=== PATIENT | female | born 1940 | race Caucasian/White ===

== ENCOUNTER 2018-10-20 12:45 | Inpatient (IN) | payer MEDICARE, OTHER ==
--- NOTE | 2018-10-20 13:57 | PDOC ---
History of Present Illness - General Chief Complaint: Headache Stated Complaint: HEADACHES Time Seen by Provider: 10/20/18 13:05 History Source: Patient Exam Limitations: No Limitations - History of Present Illness Initial Comments: 10/20/18 13:51 HISTORY OF PRESENT ILLNESS: This is a 78-year-old woman past medical history of hypertension, [id number] diabetes, hyperlipidemia, osteoarthritis presents emergency department for evaluation of 5 days of dizziness, weakness, shortness of breath, uneasy feeling in her chest and upper abdomen and decreased exercise tolerance. Patient is unable to describe the feeling she has in her chest but describes abdomen as a bloating sensation. Patient was seen today by her primary doctor who referred patient to the emergency department for evaluation. She denies fevers, chills, headache, nausea, vomiting, dysuria, hematuria, rectal bleeding, constipation, diarrhea. No recent travel or sick contacts. PAST MEDICAL HISTORY: see HPI SURGICAL HISTORY: Denies ALLERGIES: No known drug allergies REVIEW OF SYSTEMS General/Constitutional: Denies fever or chills. Denies weakness, weight change. HEENT: Denies change in vision. Denies ear pain or discharge. Denies sore throat. Cardiovascular: see HPI Respiratory: Denies cough, wheezing, or hemoptysis. Gastrointestinal: Denies nausea, vomiting, diarrhea or constipation. Denies rectal bleeding. Genitourinary: Denies dysuria, frequency, or change in urination. Musculoskeletal: Denies joint or muscle swelling or pain. Denies neck or back pain. Skin and breasts: Denies rash or easy bruising. Neurologic: see HPI Psychiatric: Denies depression or anxiety. Endocrine: Denies increased thirst. Denies abnormal weight change. Hematologic/Lymphatic: Denies anemia, easy bleeding, or history of blood clots. Allergic/Immunologic: Denies hives or skin allergy. Denies latex allergy. PHYSICAL EXAM General Appearance: Well-appearing, appropriately dressed. No apparent distress , no intoxication. HEENT: EOMI, PERRLA, normal ENT inspection, normal voice, TMs normal, pharynx normal. No conjunctival pallor. No photophobia, scleral icterus. Neck: Supple. Trachea midline. No tenderness, rigidity, carotid bruit, stridor , lymphadenopathy, or thyromegaly. Respiratory/Chest: Lungs CTAB. No shortness of breath, chest tenderness, respiratory distress, accessory muscle use. No crackles, rales, rhonchi, stridor , wheezing, dullness Cardiovascular: RRR. S1, S2. No JVD, murmur, bradycardia, tachycardia. No edema present. Vascular Pulses: Dorsalis-Pedis (R): 2+, Dorsalis-Pedis (L): 2+ Gastrointestinal/Abdominal: Normal bowel sounds. Abdomen soft, non-distended. No tenderness or rebound tenderness. No organomegaly, pulsatile mass, guarding, hernia, hepatomegaly, splenomegaly. Lymphatic: No adenopathy, tenderness. Musculoskeletal/Extremities: Normal inspection. FROM of all extremities, normal capillary refill. Pelvis Stable. No CVA tenderness. No tenderness to extremities, pedal edema, swelling, erythema or deformity. Integumentary: Appropriate color, dry, warm. No cyanosis, erythema, jaundice or rash Neurologic: beam saw operator II-XII intact. Fully oriented, alert. Appropriate mood/affect. Motor strength 5/5. No appreciable EOM palsy, facial droop or sensory deficit. Past History - Past Medical History Allergies/Adverse Reactions: Allergies Allergy/AdvReac Type Severity Reaction Status Date / Time No Known Allergies Allergy Verified 10/20/18 13:01 COPD: No - Suicide/Smoking/Psychosocial Hx Smoking History: Never smoked Have you smoked in the past 12 months: No Information on smoking cessation initiated: No Hx Alcohol Use: No Drug/Substance Use Hx: No *Physical Exam - Vital Signs Last Vital Signs Temp Pulse Resp BP Pulse Ox 98.7 F 70 16 151/88 100 10/20/18 13:00 10/20/18 13:00 10/20/18 13:00 10/20/18 13:00 10/20/18 13:00 Heart Score/ECG Review - History History: Slightly suspicious - Electrocardiogram EKG: Normal - Age Age: >/= 65 - Risk Factors Risk Factors Heart Score: Yes Hx Hypercholesterolemia, Yes Hx Hypertension, Yes Hx Diabetes Based on the list above the patient has:: >/=3 risk factors or Hx atherosclerotic disease - Troponin Troponin: </= normal limit - Score Heart Score - Total: 4 ED Treatment Course - LABORATORY CBC & Chemistry Diagram: 10/20/18 13:21 10/20/18 13:21 Medical Decision Making - Medical Decision Making 10/20/18 13:57 A/P: 78-year-old woman with lightheadedness, shortness of breath, abdominal bloating and decreased exercise tolerance for 5 days Differential diagnosis includes but is not limited to-pneumonia, CHF, ACS, WI, PE, viral illness, hyperglycemia, occult infection. Less likely infectious as patient is afebrile. PE would be low likelihood given patient is oxygenating well with a normal heart rate and respiratory rate. Cardiac workup 10/20/18 14:41 EKG sinus rhythm with rate of 72. Occasional PVCs present. Normal intervals noted. No ischemic changes noted. Chest x-ray as read by me: Angles sharp. Lung love clear without infiltrates or consolidations noted. Cardiac silhouette is within normal limits. Laboratory testing notable for WBC 15.3 without shift. Initial troponin less than 0.02. Beta natruretic peptide 103.4. Given heart score of 4, I'll admit patient to hospitalist service to contact cardiology for consult. 10/20/18 15:46 10/20/18 16:24 Case has been discussed with Dr. Rothman who accepts patient for telemetry admission. Dr. Finn placed for cardiology consult. *DC/Admit/Observation/Transfer Diagnosis at time of Disposition: Shortness of breath - Discharge Dispostion Condition at time of disposition: Fair Decision to Admit order: Yes - Referrals Referrals: Zhen Thakkar MD [Primary Care Provider] - - Patient Instructions - Post Discharge Activity
[2018-10-20 14:02] LABS: BASO % 0.5 % (0-2.0); EOS % 2.7 % (0-4.5); HEMATOCRIT 36.5 % (32.4-45.2); HEMOGLOBIN 11.9 GM/dL (10.7-15.3); LYMPH % 34.7 % (8-40); MCH 27.3 pg (25.7-33.7); MCHC 32.6 g/dl (32.0-36.0); MEAN CELL VOLUME 83.7 fl (80-96); MEAN PLT VOLUME 9.7 fl (7.5-11.1); MONO % 8.1 % (3.8-10.2); PLATELET COUNT 433 K/MM3 (134-434); RBC 4.36 M/mm3 (3.60-5.2); RDW 15.2 % (11.6-15.6); WHITE BLOOD COUNT 15.3 K/mm3 (4.0-10.0)
--- NOTE | 2018-10-20 14:03 | PDOC ---
*Physical Exam - Vital Signs Last Vital Signs Temp Pulse Resp BP Pulse Ox 98.7 F 70 16 151/88 100 10/20/18 13:00 10/20/18 13:00 10/20/18 13:00 10/20/18 13:00 10/20/18 13:00 ED Treatment Course - LABORATORY CBC & Chemistry Diagram: 10/21/18 05:45 10/21/18 05:45 Medical Decision Making - Medical Decision Making 10/20/18 16:49 Ms Cartwright is a 78-year-old F h/o HTN, NIDDM, HLD, Osteoarthritis who presents to the ER with a complaint of dizziness, weakness, shortness of breath, uneasy feeling in her chest and upper abdomen and decreased exercise tolerance. She denies fevers, chills, headache, nausea, vomiting, dysuria, hematuria, rectal bleeding, constipation, diarrhea. Given pt age and medical history, would be cautious and place her on observation Agree with history, physical and plan per [facility] EKG - NSR rate of 72 bpm, axis nml, intervals nml, no st elevation or depression t waves upright 10/20/18 16:53 Laboratory Tests 10/20/18 10/20/18 10/20/18 13:21 13:21 13:21 WBC 15.3 H Hgb 11.9 Hct 36.5 Plt Count 433 INR 0.92 Troponin I < 0.02 10/20/18 16:53 CXR - emphasematous changes No infiltrate Agree with plan per CARDIOVASCULAR TECH Sukumar *DC/Admit/Observation/Transfer Diagnosis at time of Disposition: Shortness of breath - Discharge Dispostion Condition at time of disposition: Fair - Referrals - Patient Instructions - Post Discharge Activity
[2018-10-20 14:19] LABS: INR 0.92 (0.83-1.09); PROTHROMBIN TIME (PATIENT) 10.9 SEC (9.7-13.0)
[2018-10-20 14:22] LABS: ACTIVATED PTT 26.6 SECONDS (25.2-36.5)
[2018-10-20 14:28] LABS: ALBUMIN 3.5 g/dl (3.4-5.0); ALK PHOS 102 U/L (45-117); ANION GAP 6 MMOL/L (8-16); BILIRUBIN,TOTAL 0.4 mg/dL (0.2-1); BLOOD UREA NITROGEN 16.8 mg/dL (7-18); CALCIUM 9.5 mg/dL (8.5-10.1); CHLORIDE 102 mmol/L (98-107); CO2 31 mmol/L (21-32); CREATININE 0.8 mg/dL (0.55-1.3); GLUCOSE,RANDOM 110 mg/dL (74-106); SGOT/AST 25 U/L (15-37); SGPT/ALT 24 U/L (13-61); SODIUM 139 mmol/L (136-145); TOT PROT 7.2 g/dl (6.4-8.2)
[2018-10-20 14:31] LABS: POTASSIUM 4.1 mmol/L (3.5-5.1)
--- NOTE | 2018-10-20 16:28 | HP ---
Admitting History and Physical - Admission Chief Complaint: came in for shortness ofbreath History of Present Illness: : This is a 78-year-old woman past medical history of hypertension, non-insulin- dependent diabetes, hyperlipidemia, osteoarthritis presents emergency department for evaluation of 5 days of dizziness, weakness, shortness of breath , uneasy feeling in her chest and upper abdomen and decreased exercise tolerance. Patient is unable to describe the feeling she has in her chest but describes abdomen as a bloating sensation. Patient was seen today by her primary doctor who referred patient to the emergency department for evaluation. She denies fevers, chills, headache, nausea, vomiting, dysuria, hematuria, rectal bleeding, constipation, diarrhea. History Source: Family Member Limitations to Obtaining History: Language Barrier - Past Medical History Cardiovascular: Yes: HTN, Hyperlipdemia - Smoking History Smoking history: Never smoked Have you smoked in the past 12 months: No - Alcohol/Substance Use Hx Alcohol Use: No Home Medications - Allergies Allergies/Adverse Reactions: Allergies Allergy/AdvReac Type Severity Reaction Status Date / Time No Known Allergies Allergy Verified 10/20/18 13:01 Review of Systems - Review of Systems Cardiovascular: reports: Chest Pain, Shortness of Breath Physical Examination Vital Signs: Vital Signs Temperature 98.7 F 10/20/18 13:00 Pulse Rate 70 10/20/18 13:00 Respiratory Rate 16 10/20/18 13:00 Blood Pressure 151/88 10/20/18 13:00 O2 Sat by Pulse Oximetry (%) 100 10/20/18 13:00 Labs: CBC, BMP 10/20/18 13:21 10/20/18 13:21 Problem List - Problems (1) Shortness of breath Assessment/Plan: echo CE [address]ray show emphysematous changes cardiology pulm consult duonebs oxygen daily weights dvt ppx iv medrol Code(s): R06.02 - SHORTNESS OF BREATH (2) HTN (hypertension) Assessment/Plan: norvasc losasrtan Code(s): I10 - ESSENTIAL (PRIMARY) HYPERTENSION (3) HLD (hyperlipidemia) Assessment/Plan: lipid panel Code(s): E78.5 - HYPERLIPIDEMIA, UNSPECIFIED (4) Diabetes Assessment/Plan: hgba1c slidign scale bgm Code(s): E11.9 - TYPE 2 DIABETES MELLITUS WITHOUT COMPLICATIONS Qualifiers: Diabetes mellitus type: type 2 Diabetes mellitus complication detail: with dermatitis
[2018-10-20] MEDS ORDERED: AZITHROMYCIN IVPB 500 MG in DEXTROSE 5%-WATER - 250 ML IVPB ONE (16:47)
[2018-10-20] MEDS ORDERED: AZITHROMYCIN IVPB 500 MG/250 ML BAG IVPB ONE (17:15)
[2018-10-20] MEDS ORDERED: methylPREDNISolone NA SUCC 40 MG/1 ML VIAL ONE (17:15)
[2018-10-20] MEDS: methylPREDNISolone NA SUCC 40 MG/1 ML VIAL IVPB SCH (18:32)
[2018-10-20] MEDS: ALBUTEROL SO4 2.5/IPRATROPIUM 0.5 INH SOL 3 ML VIAL.NEB. NEB SCH (20:11)
[2018-10-20] MEDS ORDERED: ALBUTEROL SO4 2.5/IPRATROPIUM 0.5 INH SOL 3 ML VIAL.NEB. NEB ONE (20:13)
[2018-10-20] MEDS: INSULIN SLIDING SCALE (NOVOLOG) 1 VIAL SQ SCH (21:10)
[2018-10-20] MEDS: HEPARIN NA (PORCINE) 5,000 UNITS/ML 1ML VIAL SQ SCH (21:10)
[2018-10-20 21:39] VITALS: BMI 27.6
[2018-10-21] MEDS: methylPREDNISolone NA SUCC 40 MG/1 ML VIAL IVPB SCH ×3 (01:02→17:12)
[2018-10-21 01:56] LABS: PH,URINE 6.5 (5.0-8.0); URINE APPEARANCE Clear; URINE BILIRUBIN Negative (NEGATIVE); URINE COLOR Light yellow; URINE GLUCOSE (UA) Negative (NEGATIVE); URINE KETONE Negative (NEGATIVE); URINE LEUK ESTERASE 1+ (NEGATIVE); URINE NITRITE Negative (NEGATIVE); URINE PROTEIN Negative (NEGATIVE); URINE UROBILINOGEN 0.2 mg/dL (0.2-1.0)
[2018-10-21] MEDS: INSULIN SLIDING SCALE (NOVOLOG) 1 VIAL SQ SCH ×4 (06:05→22:00)
[2018-10-21 07:12] LABS: BASO % 0.3 % (0-2.0); EOS % 0.1 % (0-4.5); HEMATOCRIT 35.5 % (32.4-45.2); LYMPH % 15.1 % (8-40); MCH 27.9 pg (25.7-33.7); MCHC 33.7 g/dl (32.0-36.0); MEAN CELL VOLUME 82.6 fl (80-96); MEAN PLT VOLUME 9.8 fl (7.5-11.1); MONO % 0.8 % (3.8-10.2); NEUT % 83.7 % (42.8-82.8); PLATELET COUNT 409 K/MM3 (134-434); RDW 15.1 % (11.6-15.6); WHITE BLOOD COUNT 10.6 K/mm3 (4.0-10.0)
[2018-10-21 07:14] LABS: INR 0.97 (0.83-1.09); PROTHROMBIN TIME (PATIENT) 11.4 SEC (9.7-13.0)
[2018-10-21 07:17] LABS: ACTIVATED PTT 27.6 SECONDS (25.2-36.5)
[2018-10-21 07:30] LABS: ALBUMIN 3.3 g/dl (3.4-5.0); ALK PHOS 92 U/L (45-117); ANION GAP 14 MMOL/L (8-16); BILIRUBIN,TOTAL 0.4 mg/dL (0.2-1); BLOOD UREA NITROGEN 18.8 mg/dL (7-18); CALCIUM 9.3 mg/dL (8.5-10.1); CHLORIDE 101 mmol/L (98-107); CHOLESTEROL 242 mg/dL (50-200); CO2 27 mmol/L (21-32); GLUCOSE,RANDOM 224 mg/dL (74-106); HDL CHOLESTEROL 57 mg/dL (40-60); MAGNESIUM 2.6 mg/dL (1.8-2.4); N-TERMINAL BNP 133.1 pg/ml (5-450); PHOSPHOROUS 3.2 mg/dL (2.5-4.9); SGOT/AST 12 U/L (15-37); SGPT/ALT 20 U/L (13-61); SODIUM 141 mmol/L (136-145); TOT PROT 6.8 g/dl (6.4-8.2); TRIGLYCERIDES 195 mg/dL (0-150)
[2018-10-21] MEDS: ALBUTEROL SO4 2.5/IPRATROPIUM 0.5 INH SOL 3 ML VIAL.NEB. NEB SCH ×4 (08:15→19:43)
--- NOTE | 2018-10-21 09:06 | PN ---
Progress Note, Physician - Current Medication List Current Medications: Active Medications Albuterol/Ipratropium (Duoneb -) 1 amp NEB RQID [facility] Last Admin: 10/20/18 20:11 Dose: 1 amp Heparin Sodium (Porcine) (Heparin -) 5,000 unit SQ BID [facility] Last Admin: 10/20/18 21:10 Dose: 5,000 unit Insulin Aspart (Novolog Vial Sliding Scale -) 1 vial SQ ACHS [facility]1983; Protocol Last Admin: 10/21/18 06:05 Dose: 2 units Losartan Potassium (Cozaar -) 50 mg PO DAILY [facility] Methylprednisolone Sodium Succinate (Solu-Medrol -) 40 mg IVPB Q8H-IV [facility] Last Admin: 10/21/18 01:02 Dose: 40 mg - Objective Vital Signs: Vital Signs Temperature 98.3 F 10/21/18 06:00 Pulse Rate 72 10/21/18 06:00 Respiratory Rate 11 10/21/18 06:00 Blood Pressure 113/44 L 10/21/18 06:00 O2 Sat by Pulse Oximetry (%) 96 10/20/18 21:29 Cardiovascular: Yes: S1, S2 Respiratory: Yes: Diminished, On Nasal O2 Gastrointestinal: Yes: Normal Bowel Sounds, Soft Labs: CBC, BMP 10/21/18 05:45 10/21/18 05:45 INR, PTT INR 0.97 (0.83-1.09) 10/21/18 06:30 Problem List - Problems (1) COPD (chronic obstructive pulmonary disease) Assessment/Plan: - chest ct xray show emphysematous changes pulm consult duonebs oxygen daily weights dvt ppx iv medrol Code(s): J44.9 - CHRONIC OBSTRUCTIVE PULMONARY DISEASE, UNSPECIFIED (2) Diabetes Assessment/Plan: hgba1c slidign scale bgm Code(s): E11.9 - TYPE 2 DIABETES MELLITUS WITHOUT COMPLICATIONS Qualifiers: Diabetes mellitus type: type 2 Diabetes mellitus complication detail: with dermatitis (3) HLD (hyperlipidemia) Code(s): E78.5 - HYPERLIPIDEMIA, UNSPECIFIED (4) HTN (hypertension) Assessment/Plan: : norvasc losasrtan Code(s): I10 - ESSENTIAL (PRIMARY) HYPERTENSION (5) Shortness of breath Assessment/Plan: echo CE [address] xray show emphysematous changes cardiology Code(s): R06.02 - SHORTNESS OF BREATH
[2018-10-21] MEDS: LOSARTAN POTASSIUM 50 MG TABLET (FP) PO SCH (10:07)
[2018-10-21] MEDS: HEPARIN NA (PORCINE) 5,000 UNITS/ML 1ML VIAL SQ SCH ×2 (10:08→21:25)
--- NOTE | 2018-10-21 15:08 | CON.CARD ---
Consult Consult Specialty:: Cardiology Referred by:: Dr. Solano Reason for Consultation:: SOB - History of Present Illness Chief Complaint: SOB, abd discomfort History of Present Illness: 78 year old woman with a pmh HTN, DMII, HLD, asthma adm with c/o 2 week history of epigastric discomfort radiating up her substernum and to the L side of the chest and sob. pt seen and examined today with her family at bedside who assisted with translation. pt states that 2 week ago while eating she had onset of epigastric discomfort radiating up the center of her chest and to the left of the chest. after this episode she felt sob. since then she has had episodes of epigastric discomfort with eating as well as continued sob. states she was diagnosed with asthma 3 years ago when she had similar episodes of sob. had a stress test at that time at [facility] that was normal. she was treated for asthma and has followed with a roofing laborer and states her asthma has been well controlled. she denies ever smoking. denies dyspnea on exertion. denies other episodes of chest pain or chest pain on exertion. no pnd, orthopnea, or le edema. no palpitations. since admission she was started on treatment for asthma exacerbation with nebulizers and steroids and supp O2 and states that she is feeling much better. no current sob or chest pain. - History Source History Provided By: Patient, Family Member Limitations to Obtaining History: Language Barrier - Past Medical History Cardio/Vascular: Yes: HTN, Hyperlipdemia Pulmonary: Yes: Asthma Gastrointestinal: Yes: GERD - Alcohol/Substance Use Hx Alcohol Use: No - Smoking History Smoking history: Never smoked Have you smoked in the past 12 months: No - Social History Usual Living Arrangement: With Spouse ADL: Independent History of Recent Travel: No Home Medications - Allergies Allergies/Adverse Reactions: Allergies Allergy/AdvReac Type Severity Reaction Status Date / Time No Known Allergies Allergy Verified 10/20/18 13:01 Family Disease History - Family Disease History Family History: Denies Review of Systems - Review of Systems Constitutional: denies: No Symptoms, Chills, Diaphoresis, Fever, Lethargy, Loss of Appetite, Malaise, Night Sweats, Unintentional Wgt. Loss, Weakness, Other Eyes: denies: No Symptoms, Blind Spots, Blurred Vision, Double Vision, Eye Pain , Floaters, Photophobia, Recent Change in Vision, Other HENT: denies: No Symptoms, Difficult Swallowing, Ear Discharge, Ear Pain, Epistaxis, Gingival Bleeding, Hearing Loss, Mouth Swelling, Nasal Congestion, Ocular Prosthesis, Throat Pain, Toothache, Ringing in Ears, Other Neck: denies: No Symptoms, Decreased ROM, Lumps, Pain on Movement, Stiffness, Swollen Glands, Tenderness, Other Cardiovascular: reports: Chest Pain, Shortness of Breath. denies: No Symptoms, Edema, Palpitations, Other Respiratory: reports: SOB. denies: No Symptoms, Cough, Exercise Intolerance, Hemoptysis, Orthopnea, PND, Snoring, SOB on Exertion, Wheezing, Other Gastrointestinal: reports: Abdominal Pain. denies: No Symptoms, Bloating, Constipation, Diarrhea, Dysphagia, Indigestion, Melena, Nausea, Rectal Bleeding , Vomiting, Vomiting Blood, Other Genitourinary: denies: No Symptoms, Burning, Discharge, Dysuria, Flank Pain, Frequency, Hematuria, Incontinence, Lesions, Menses, Pain, Testicular Mass, Testicular Pain, Testicular Swelling, Urgency, Vaginal Bleeding, Other Breasts: denies: No Symptoms Reported, See HPI, Breast Implants, Discharge from Nipple, Lumps, Pain, Skin Changes, Other Musculoskeletal: denies: No Symptoms, Back Pain, Crepitus, Decreased ROM, Extremity Pain, Joint Pain, Joint Swelling, Muscle Pain, Muscle Cramps, Muscle Weakness, Other Integumentary: denies: No Symptoms, Blister, Bruising, Change in Color, Eczema, Erythema, Incision, Lesions, Lump, Pallor, Pruritis, Rash, Wound, Other Neurological: denies: No Symptoms, Change in LOC, Change in Speech, Confusion, Dizziness, Headache, Incoordination, Numbness, Parasthesia, Pre-Existing Deficit , Seizure, Syncope, Tremors, Unsteady Gait, Weakness, Other Endocrine: denies: No Symptoms, Excessive Sweating, Flushing, Increased Hunger, Increased Thirst, Intolerance to Cold, Intolerance to Heat, Unexplained Weight Gain, Unexplained Weight Loss, Other Hematology/Lymphatic: denies: No Symptoms, Easily Bruised, Excessive Bleeding, Swollen Glands, Other Psychiatric: denies: No Symptoms, Altered Sleep Pattern, Anxiety, Depression, Hallucinations, Panic, Paranoia, Suicidal, Other Vital Signs: Vital Signs Temperature 98.5 F 10/21/18 14:00 Pulse Rate 82 10/21/18 14:00 Respiratory Rate 14 10/21/18 14:00 Blood Pressure 133/53 L 10/21/18 14:00 O2 Sat by Pulse Oximetry (%) 95 10/21/18 08:46 Constitutional: Yes: No Distress, Calm Eyes: Yes: Conjunctiva Clear, EOM Intact, PERRL HENT: Yes: Atraumatic, Normocephalic Neck: Yes: Supple, Trachea Midline Respiratory: Yes: Regular, On Nasal O2, Rhonchi. No: Rales, SOB, Wheezes Gastrointestinal: Yes: Normal Bowel Sounds, Soft. No: Distention, Tenderness Cardiovascular: Yes: Regular Rate and Rhythm. No: Bradycardia, Tachycardia, Pulse Irregular, Gallop, Rub, Varicosities JVD: No Carotid Bruit: No PMI: Non-Displaced Heart Sounds: Yes: S1, S2. No: Split S2, S3, S4, Clicks, Gallop, Rub, Bruit Murmur: No: Systolic Murmur, Diastolic Murmur Musculoskeletal: Yes: WNL Extremities: Yes: WNL Edema: No Peripheral Pulses WNL: Yes Peripheral Pulses: 2+ Left Doralis Pedis, 2+ Right Dorsalis Pedis Neurological: Yes: Alert, Oriented Psychiatric: Yes: Alert, Oriented - Other Data Labs, Other Data: CBC, BMP 10/21/18 05:45 10/21/18 05:45 INR, PTT INR 0.97 (0.83-1.09) 10/21/18 06:30 Troponin, BNP 10/21/18 05:45 Troponin I < 0.02 B-Natriuretic Peptide 133.1 Troponin, BNP 10/21/18 05:45 Troponin I < 0.02 B-Natriuretic Peptide 133.1 nsr, no sig ST abnl, possible inferior infarct, age undetermined. Imaging - Results Chest X-ray: Report Reviewed Cat Scan: Report Reviewed Other: Report Reviewed, Image Reviewed (tele-nsr, no sig arrhythmias) Assessment/Plan 78 year old woman with a pmh HTN, DMII, HLD, asthma adm with c/o 2 week history of epigastric discomfort radiating up her substernum and to the L side of the chest and sob. pt seen and examined today with her family at bedside who assisted with translation. pt states that 2 week ago while eating she had onset of epigastric discomfort radiating up the center of her chest and to the left of the chest. after this episode she felt sob. since then she has had episodes of epigastric discomfort with eating as well as continued sob. states she was diagnosed with asthma 3 years ago when she had similar episodes of sob. had a stress test at that time at [facility] that was normal. she was treated for asthma and has followed with a roofing laborer and states her asthma has been well controlled. she denies ever smoking. denies dyspnea on exertion. denies other episodes of chest pain or chest pain on exertion. no pnd, orthopnea, or le edema. no palpitations. since admission she was started on treatment for asthma exacerbation with nebulizers and steroids and supp O2 and states that she is feeling much better. no current sob or chest pain. SOB/epigastric discomfort radiating to chest -not c/w ACS -no ischemia on ekg -cardiac enzymes wnl, bnp wnl -rhonchi on exam, no rales -no clinical or radiographic signs of chf -stress test 3 years ago done for the same episodes of sob was normal and pt improved with tx of asthma -significantly improving currently with treatment of asthma with steroids and bronchodilators -most likely source of symptoms is asthma exacerbation possibly stimulated by GERD -pt does not require additional inpatient cardiac work up at this time. -if she does not continue to improve with current treatment then would consider pursuing further cardiac work up. Will see as needed. Please call with any questions.
--- NOTE | 2018-10-21 18:49 | EKG ---
Test Reason : Blood Pressure : / mmHG Vent. Rate : 072 BPM Atrial Rate : 072 BPM P-R Int : 152 ms QRS Dur : 104 ms QT Int : 390 ms P-R-T Axes : 045 -29 039 degrees QTc Int : 427 ms SINUS RHYTHM WITH OCCASIONAL PREMATURE VENTRICULAR COMPLEXES INFERIOR INFARCT , AGE UNDETERMINED ABNORMAL ECG NO PREVIOUS ECGS AVAILABLE Confirmed by GISSELLE SILVA MD ([id number]) on 10/21/2018 6:49:03 PM Referred By: Confirmed By:GISSELLE SILVA MD
[2018-10-22] MEDS: methylPREDNISolone NA SUCC 40 MG/1 ML VIAL IVPB SCH ×3 (01:36→17:11)
[2018-10-22] MEDS: INSULIN SLIDING SCALE (NOVOLOG) 1 VIAL SQ SCH ×4 (07:30→22:03)
[2018-10-22] MEDS: ALBUTEROL SO4 2.5/IPRATROPIUM 0.5 INH SOL 3 ML VIAL.NEB. NEB SCH ×4 (08:00→19:28)
--- NOTE | 2018-10-22 09:11 | PN ---
Progress Note, Physician - Current Medication List Current Medications: Active Medications Albuterol/Ipratropium (Duoneb -) 1 amp NEB RQID [facility] Last Admin: 10/21/18 19:43 Dose: 1 amp Heparin Sodium (Porcine) (Heparin -) 5,000 unit SQ BID [facility] Last Admin: 10/21/18 21:25 Dose: 5,000 unit Insulin Aspart (Novolog Vial Sliding Scale -) 1 vial SQ ACHS [facility]; Protocol Last Admin: 10/22/18 07:30 Dose: Not Given Losartan Potassium (Cozaar -) 50 mg PO DAILY [facility] Last Admin: 10/21/18 10:07 Dose: 50 mg Methylprednisolone Sodium Succinate (Solu-Medrol -) 40 mg IVPB Q8H-IV [facility] Last Admin: 10/22/18 01:36 Dose: 40 mg - Objective Vital Signs: Vital Signs Temperature 98.0 F 10/22/18 06:00 Pulse Rate 88 10/22/18 08:38 Respiratory Rate 15 10/22/18 08:38 Blood Pressure 110/42 L 10/22/18 08:38 O2 Sat by Pulse Oximetry (%) 96 10/21/18 21:00 Cardiovascular: Yes: Regular Rate and Rhythm Respiratory: Yes: Regular, CTA Bilaterally Gastrointestinal: Yes: Normal Bowel Sounds, Soft Labs: CBC, BMP 10/21/18 05:45 10/21/18 05:45 INR, PTT INR 0.97 (0.83-1.09) 10/21/18 06:30 Problem List - Problems (1) COPD (chronic obstructive pulmonary disease) Assessment/Plan: - chest ct xray show emphysematous changes pulm consult duonebs oxygen daily weights dvt ppx iv medrol taper Code(s): J44.9 - CHRONIC OBSTRUCTIVE PULMONARY DISEASE, UNSPECIFIED (2) Diabetes Assessment/Plan: hgba1c slidign scale bgm Code(s): E11.9 - TYPE 2 DIABETES MELLITUS WITHOUT COMPLICATIONS Qualifiers: Diabetes mellitus type: type 2 Diabetes mellitus complication detail: with dermatitis (3) HLD (hyperlipidemia) Code(s): E78.5 - HYPERLIPIDEMIA, UNSPECIFIED (4) HTN (hypertension) Assessment/Plan: : norvasc losasrtan Code(s): I10 - ESSENTIAL (PRIMARY) HYPERTENSION (5) Shortness of breath Assessment/Plan: echo CE [address] xray show emphysematous changes cardiology Code(s): R06.02 - SHORTNESS OF BREATH (6) UTI (urinary tract infection) Assessment/Plan: abx Microbiology 10/21/18 00:00 Urine Culture - Preliminary Urine - Urine Clean Catch Lactose Fermenting Neg Bacilli Code(s): N39.0 - URINARY TRACT INFECTION, SITE NOT SPECIFIED
[2018-10-22] MEDS ORDERED: PT OWN MED DRAWER 7, Y5N ONE (09:13)
[2018-10-22] MEDS: LOSARTAN POTASSIUM 50 MG TABLET (FP) PO SCH (09:15)
[2018-10-22] MEDS: HEPARIN NA (PORCINE) 5,000 UNITS/ML 1ML VIAL SQ SCH ×2 (09:15→21:08)
[2018-10-22] MEDS ORDERED: DEXTROSE 5%-WATER - 50 ML IVPB ONE (13:21)
[2018-10-22] MEDS ORDERED: cefTRIAXone SODIUM 1 GM VIAL ONE (13:21)
[2018-10-22] MEDS: CEFTRIAXONE 1 GM in DEXTROSE 5%-WATER - 50 ML IVPB SCH (13:30)
[2018-10-23] MEDS: methylPREDNISolone NA SUCC 40 MG/1 ML VIAL IVPB SCH ×3 (01:37→18:37)
[2018-10-23] MEDS: ALBUTEROL SO4 2.5/IPRATROPIUM 0.5 INH SOL 3 ML VIAL.NEB. NEB SCH ×4 (07:20→21:15)
[2018-10-23] MEDS: INSULIN SLIDING SCALE (NOVOLOG) 1 VIAL SQ SCH ×4 (07:53→22:30)
--- NOTE | 2018-10-23 09:01 | PN ---
Progress Note, Physician Chief Complaint: AWAKE ALERT FEELING BETTER SEEN IN ICU BED 12 - Current Medication List Current Medications: Active Medications Albuterol/Ipratropium (Duoneb -) 1 amp NEB RQID [facility] Last Admin: 10/23/18 07:20 Dose: 1 amp Heparin Sodium (Porcine) (Heparin -) 5,000 unit SQ BID [facility] Last Admin: 10/22/18 21:08 Dose: 5,000 unit Ceftriaxone Sodium 1 gm/ (Dextrose) 50 mls @ 100 mls/hr IVPB DAILY [facility]; Protocol Last Admin: 10/22/18 13:30 Dose: 100 mls/hr Insulin Aspart (Novolog Vial Sliding Scale -) 1 vial SQ ACHS [facility]; Protocol Last Admin: 10/23/18 07:53 Dose: 2 units Losartan Potassium (Cozaar -) 50 mg PO DAILY [facility] Last Admin: 10/22/18 09:15 Dose: 50 mg Methylprednisolone Sodium Succinate (Solu-Medrol -) 40 mg IVPB Q8H-IV [facility] Last Admin: 10/23/18 01:37 Dose: 40 mg - Objective Vital Signs: Vital Signs Temperature 98.2 F 10/23/18 06:00 Pulse Rate 66 10/23/18 06:00 Respiratory Rate 12 10/23/18 06:00 Blood Pressure 134/55 L 10/23/18 06:00 O2 Sat by Pulse Oximetry (%) 96 10/22/18 21:00 Constitutional: Yes: Mild Distress Cardiovascular: Yes: Regular Rate and Rhythm Respiratory: Yes: On Nasal O2 Gastrointestinal: Yes: WNL Genitourinary: Yes: WNL Musculoskeletal: Yes: WNL Edema: No Integumentary: Yes: WNL Wound/Incision: Yes: Clean/Dry Neurological: Yes: WNL ...Motor Strength: WNL Labs: CBC, BMP 10/21/18 05:45 10/21/18 05:45 INR, PTT INR 0.97 (0.83-1.09) 10/21/18 06:30 Problem List - Problems (1) COPD (chronic obstructive pulmonary disease) Code(s): J44.9 - CHRONIC OBSTRUCTIVE PULMONARY DISEASE, UNSPECIFIED (2) Diabetes Code(s): E11.9 - TYPE 2 DIABETES MELLITUS WITHOUT COMPLICATIONS Qualifiers: Diabetes mellitus type: type 2 Diabetes mellitus complication detail: with dermatitis (3) HLD (hyperlipidemia) Code(s): E78.5 - HYPERLIPIDEMIA, UNSPECIFIED (4) HTN (hypertension) Code(s): I10 - ESSENTIAL (PRIMARY) HYPERTENSION (5) Shortness of breath Code(s): R06.02 - SHORTNESS OF BREATH Assessment/Plan COPD EXACERBATION ON IV STEROIDS 02 SUPPORT PULM EVAL OOB TO CHAIR CARDIO F/U APPRECIATED TRANSFER TO REG FLOOR
[2018-10-23] MEDS ORDERED: cefTRIAXone SODIUM 1 GM VIAL ONE (09:15)
[2018-10-23] MEDS ORDERED: DEXTROSE 5%-WATER - 50 ML IVPB ONE (09:15)
[2018-10-23] MEDS: CEFTRIAXONE 1 GM in DEXTROSE 5%-WATER - 50 ML IVPB SCH (09:17)
[2018-10-23] MEDS: HEPARIN NA (PORCINE) 5,000 UNITS/ML 1ML VIAL SQ SCH ×2 (09:17→21:10)
[2018-10-23] MEDS: LOSARTAN POTASSIUM 50 MG TABLET (FP) PO SCH (09:18)
--- NOTE | 2018-10-23 14:45 | CON.PULM ---
Consult Consult Specialty:: PULM/CCM Referred by:: LEON Reason for Consultation:: SOB - History of Present Illness Chief Complaint: bloating / SOB History of Present Illness: 78 F, hypertension, [id number] diabetes, hyperlipidemia, osteoarthritis, and supposed asthma. No intubation, non-steroid dependent, unknown PEF. No known baseline PFTs. I suspect more likely COPD rather than true asthma. Admitted via the ER due to 5 days of dizziness, weakness, and exertional dyspnea. Additionally describes a non-specific "uneasy feeling in her chest and upper abdomen". Subjective excessive bloating. No significant cough. No fever or chills. No hemoptysis or night sweats. No travel history or sick contacts. CT: calcified granulomas. No infiltrates or effusions. - History Source History Provided By: Patient Limitations to Obtaining History: No Limitations - Past Medical History Cardio/Vascular: Yes: HTN, Hyperlipdemia Pulmonary: Yes: Asthma, Bronchitis. No: Cancer, COPD, O2 Dependent, Pneumonia, Previously Intubated, Pulmonary Embolus, Pulmonary Fibrosis, Sleep Apnea Gastrointestinal: Yes: GERD - Alcohol/Substance Use Hx Alcohol Use: No - Smoking History Smoking history: Never smoked Have you smoked in the past 12 months: No - Social History Usual Living Arrangement: With Spouse ADL: Independent History of Recent Travel: No Home Medications - Allergies Allergies/Adverse Reactions: Allergies Allergy/AdvReac Type Severity Reaction Status Date / Time No Known Allergies Allergy Verified 10/20/18 13:01 Review of Systems - Review of Systems Constitutional: denies: Chills, Fever, Malaise, Night Sweats, Unintentional Wgt. Loss Eyes: reports: No Symptoms HENT: reports: No Symptoms Neck: reports: No Symptoms Cardiovascular: reports: Chest Pain, Palpitations, Shortness of Breath. denies : Edema Respiratory: reports: Cough, Exercise Intolerance, SOB on Exertion. denies: Hemoptysis, Orthopnea, PND, Snoring, SOB, Wheezing Gastrointestinal: reports: Bloating, Indigestion. denies: Dysphagia, Melena, Nausea, Rectal Bleeding, Vomiting, Vomiting Blood Genitourinary: reports: No Symptoms Breasts: reports: No Symptoms Reported Musculoskeletal: reports: No Symptoms Integumentary: reports: No Symptoms Neurological: reports: Dizziness. denies: Change in LOC, Change in Speech, Seizure, Syncope, Unsteady Gait, Weakness Endocrine: reports: No Symptoms Hematology/Lymphatic: reports: No Symptoms Psychiatric: reports: No Symptoms Physical Exam Vital Sings: Vital Signs Temperature 98 F 10/23/18 10:00 Pulse Rate 77 10/23/18 12:00 Respiratory Rate 20 10/23/18 12:00 Blood Pressure 139/58 L 10/23/18 12:00 O2 Sat by Pulse Oximetry (%) 96 10/23/18 09:00 Constitutional: Yes: No Distress, Calm Eyes: Yes: Conjunctiva Clear, EOM Intact HENT: Yes: Atraumatic, Normocephalic Neck: Yes: Supple, Trachea Midline Cardiovascular: Yes: Regular Rate and Rhythm Respiratory: Yes: Diminished. No: Accessory Muscle Use, Rales, Rhonchi, SOB, SOB on Exertion, Stridor, Tachypnea, Wheezes ...Inspection: Yes: WNL ...Clubbing: No Gastrointestinal: Yes: Normal Bowel Sounds, Soft, Abdomen, Obese Renal/: Yes: WNL Musculoskeletal: Yes: WNL Extremities: Yes: WNL Edema: No Peripheral Pulses WNL: Yes Integumentary: Yes: WNL Neurological: Yes: WNL, Alert, Oriented ...Motor Strength: WNL Psychiatric: Yes: WNL, Alert, Oriented Labs: CBC, BMP 10/21/18 05:45 10/21/18 05:45 Imaging - Results Chest X-ray: Report Reviewed, Image Reviewed X-ray: Report Reviewed, Image Reviewed Problem List - Problems (1) COPD (chronic obstructive pulmonary disease) Code(s): J44.9 - CHRONIC OBSTRUCTIVE PULMONARY DISEASE, UNSPECIFIED (2) Diabetes Code(s): E11.9 - TYPE 2 DIABETES MELLITUS WITHOUT COMPLICATIONS Qualifiers: Diabetes mellitus type: type 2 Diabetes mellitus complication detail: with dermatitis (3) HLD (hyperlipidemia) Code(s): E78.5 - HYPERLIPIDEMIA, UNSPECIFIED (4) HTN (hypertension) Code(s): I10 - ESSENTIAL (PRIMARY) HYPERTENSION (5) Shortness of breath Code(s): R06.02 - SHORTNESS OF BREATH Assessment/Plan Medrol BD TX O2 as needed Noted Rocephin: do not suspect respiratory tract infection. Low threshold to D/ C. No smoking PFTs after DC Will follow Thank you. Dr Shah
--- NOTE | 2018-10-23 16:58 | PN ---
Progress Note (short form) - Note Progress Note: ID CONSULT DICTATED ASYMPTOMATIC BACTERURIA ESBL EXACERBATION COPD LEUKOCYTOSIS IMPROVED OBSERVE OFF ANTIBIOTICS CONTACT PRECAUTIONS ESBL
[2018-10-24] MEDS: methylPREDNISolone NA SUCC 40 MG/1 ML VIAL IVPB SCH (02:49)
[2018-10-24] MEDS: INSULIN SLIDING SCALE (NOVOLOG) 1 VIAL SQ SCH ×4 (08:07→21:41)
[2018-10-24] MEDS: ALBUTEROL SO4 2.5/IPRATROPIUM 0.5 INH SOL 3 ML VIAL.NEB. NEB SCH ×4 (08:15→22:00)
--- NOTE | 2018-10-24 08:18 | PN ---
Progress Note, Physician - Current Medication List Current Medications: Active Medications Albuterol/Ipratropium (Duoneb -) 1 amp NEB RQID [facility] Last Admin: 10/24/18 08:15 Dose: 1 amp Heparin Sodium (Porcine) (Heparin -) 5,000 unit SQ BID [facility] Last Admin: 10/23/18 21:10 Dose: 5,000 unit Ceftriaxone Sodium 1 gm/ (Dextrose) 50 mls @ 100 mls/hr IVPB DAILY [facility]; Protocol Last Admin: 10/23/18 09:17 Dose: 100 mls/hr Insulin Aspart (Novolog Vial Sliding Scale -) 1 vial SQ ACHS [facility]; Protocol Last Admin: 10/24/18 08:07 Dose: 2 units Losartan Potassium (Cozaar -) 50 mg PO DAILY [facility] Last Admin: 10/23/18 09:18 Dose: 50 mg Methylprednisolone Sodium Succinate (Solu-Medrol -) 40 mg IVPB Q8H-IV [facility] Last Admin: 10/24/18 02:49 Dose: 40 mg - Objective Vital Signs: Vital Signs Temperature 97.9 F 10/24/18 06:00 Pulse Rate 66 10/24/18 06:00 Respiratory Rate 16 10/24/18 06:00 Blood Pressure 134/56 L 10/24/18 06:00 O2 Sat by Pulse Oximetry (%) 94 L 10/23/18 20:40 Cardiovascular: Yes: Regular Rate and Rhythm Respiratory: Yes: Regular, CTA Bilaterally Gastrointestinal: Yes: Normal Bowel Sounds, Soft. No: Tenderness Labs: CBC, BMP 10/21/18 05:45 10/21/18 05:45 INR, PTT INR 0.97 (0.83-1.09) 10/21/18 06:30 Problem List - Problems (1) COPD (chronic obstructive pulmonary disease) Assessment/Plan: - chest ct xray show emphysematous changes pulm consult duonebs oxygen daily weights dvt ppx iv medrol taper--to po steroids dc abx Code(s): J44.9 - CHRONIC OBSTRUCTIVE PULMONARY DISEASE, UNSPECIFIED (2) Diabetes Assessment/Plan: [id number] slidign scale bgm Code(s): E11.9 - TYPE 2 DIABETES MELLITUS WITHOUT COMPLICATIONS Qualifiers: Diabetes mellitus type: type 2 Diabetes mellitus complication detail: with dermatitis (3) HLD (hyperlipidemia) Code(s): E78.5 - HYPERLIPIDEMIA, UNSPECIFIED (4) HTN (hypertension) Assessment/Plan: : norvasc losasrtan Code(s): I10 - ESSENTIAL (PRIMARY) HYPERTENSION (5) Shortness of breath Assessment/Plan: echo CE [address] xray show emphysematous changes cardiology noted Code(s): R06.02 - SHORTNESS OF BREATH (6) UTI (urinary tract infection) Assessment/Plan: ESBL no bax id consult appreciated Code(s): N39.0 - URINARY TRACT INFECTION, SITE NOT SPECIFIED
[2018-10-24] MEDS: LOSARTAN POTASSIUM 50 MG TABLET (FP) PO SCH (09:56)
[2018-10-24] MEDS: predniSONE 10 MG TABLET (UD) PO SCH ×2 (09:56→21:39)
[2018-10-24] MEDS: HEPARIN NA (PORCINE) 5,000 UNITS/ML 1ML VIAL SQ SCH ×2 (09:57→21:40)
--- NOTE | 2018-10-24 10:41 | ECHO ---
Name: BRANDEN FERNANDES Exam:Adult Echocardiogram Study Date: 10/24/2018 09:21 AM Age: 78 yrs Reason For Study: LVEF Height: 62 in Weight: 153 lb BSA: 1.7 m2 MMode/2D Measurements & Calculations IVSd: 0.86 cm Ao root diam: 2.6 cm LVIDd: 5.1 cm LA dimension: 3.5 cm LVIDs: 3.7 cm LVPWd: 0.79 cm EDV(Teich): 125.2 ml LVOT diam: 2.0 cm ESV(Teich): 57.7 ml Doppler Measurements & Calculations MV E max romero: 98.2 cm/sec Ao V2 max: 171.6 cm/sec MV A max romero: 96.7 cm/sec Ao max P.8 mmHg MV E/A: 1.0 Ao V2 mean: 127.7 cm/sec MV dec time: 0.19 sec Ao mean P.2 mmHg Ao V2 VTI: 37.8 cm GILBERT(I,D): 2.5 cm2 AI P1/2t: 672.2 msec GILBERT(V,D): 2.8 cm2 AI max romero: 277.9 cm/sec LV V1 max P.7 mmHg AI max P.0 mmHg LV V1 mean P.5 mmHg AI dec slope: 121.1 cm/sec2 LV V1 max: 155.6 cm/sec LV V1 mean: 100.2 cm/sec LV V1 VTI: 30.3 cm MR max romero: 357.8 cm/sec SV(LVOT): 92.7 ml MR max P.3 mmHg TR max romero: 191.5 cm/sec PA V2 max: 121.6 cm/sec TR max P.3 mmHg PA max P.9 mmHg PI end-d romero: 95.0 cm/sec Med Peak E' Romero: 4.7 cm/sec Med E/e': 21.0 Lat Peak E' Romero: 4.9 cm/sec Lat E/e': 20.2 Procedure A complete two-dimensional transthoracic echocardiogram was performed (2D, M-mode, Doppler and color flow Doppler). Left Ventricle The left ventricular size, thickness and function are normal. Ejection Fraction = 65%. E/A reversal c onsistent with but not diagnostic of poor LV compliance. The left ventricular wall motion is normal. Atria Normal left and right atrial size and function. Mitral Valve The mitral valve is normal in structure and function. There is mild mitral annular calcification. The re is trace to mild mitral regurgitation. Tricuspid Valve The tricuspid valve is normal in structure and function. There is trace tricuspid regurgitation. Righ t ventricular systolic pressure is 20 mmhg. Assuming the RA pressure is 5 mmHg. Aortic Valve There is moderate aortic valve thickening. Mild valvular aortic stenosis. Aortic mean pressure gradie nt= 7.2. Trace aortic regurgitation. Pulmonic Valve The pulmonic valve is normal in structure and function. Trace pulmonic valvular regurgitation. Great Vessels The aortic root is normal size. Pericardium/Pleura There is no pericardial effusion. There is no pleural effusion. Interpretation Summary The left ventricular size, thickness and function are normal Ejection Fraction = 65%. There is mild mitral annular calcification. There is trace to mild mitral regurgitation. There is trace tricuspid regurgitation. Right ventricular systolic pressure is 20 mmhg. There is moderate aortic valve thickening. Mild valvular aortic stenosis. Aortic mean pressure gradient= 7.2 Trace aortic regurgitation. Trace pulmonic valvular regurgitation. MD Dl Finn 10/24/2018 10:40 AM
--- NOTE | 2018-10-24 12:54 | CONS ---
INFECTIOUS DISEASE CONSULTATION DATE OF CONSULTATION: DATE OF DICTATION: 10/24/2018 HISTORY: The patient is a 78-year-old female who was evaluated for positive urine culture ESBL. She was admitted to the hospital on October 20, 2018, with a 5-day history of generalized weakness, exertional dyspnea, dizziness. She required admission to the intensive care unit. On initial evaluation, she was noted to have a white blood cell count of 15,000. She was seen in consultation by Cardiology and Pulmonary. She was felt not to have symptoms secondary to cardiac causes but rather an exacerbation of COPD secondary to gastroesophageal reflux. Pulmonary concurred with impression that her symptoms were an exacerbation of COPD. Her hospital course has been complicated by a positive urine culture for ESBL. Via translators, she denies any urinary tract symptoms. No complaints of dysuria or hematuria. She denies frequency or urgency. She continues to complain of some vague epigastric abdominal discomfort radiating to the chest. She has been afebrile. PAST MEDICAL HISTORY: Positive for equ-hmgbrvw-asftmzuoi diabetes mellitus, hypertension, hyperlipidemia, COPD. ALLERGIES: No known allergies. MEDICATIONS: Include aspirin and losartan. PAST SURGICAL HISTORY: Ovarian cystectomy. SOCIAL HISTORY: She is [place] speaking. She is originally from [place]. Has been living in the [facility] for the past 5 years or so. She is a nonsmoker, nondrinker. Lives at home with family. No known ill contacts. No recent travel. SYSTEMS REVIEW: Neurologic: No loss of consciousness, seizure activity, focal weakness. Cardiac: As per HPI. Respiratory: Negative cough or sputum production. Gastrointestinal: As per HPI. No vomiting, diarrhea. Genitourinary: As per HPI. LABORATORY DATA: White count on admission 15.3, presently 10.9, hematocrit 35.5, platelet count 409, BUN 18, creatinine 1.0. Urinalysis, 1+ leukocyte esterase. Urine culture, positive for ESBL. Chest x-ray, no focal infiltrate. Hyperaeration and flattened diaphragms consistent with COPD. CAT scan of the chest negative for infiltrate. PHYSICAL EXAMINATION: General: She is awake and alert. Out of bed to chair. She is not acutely toxic appearing in no acute respiratory distress. Vital Signs: Temperature 98, blood pressure 139/58, pulse 77 regular, respirations 20 per minute. HEENT: Sclerae anicteric. Heart: Sounds S1, S2. Lungs: Diminished breath sounds bilaterally. No rales, rhonchi, or wheezing. Abdomen: Soft. No tenderness elicited. No mass, rebound, or rigidity. No suprapubic or flank tenderness. Extremities: 1+ edema. IMPRESSION: 1. Asymptomatic bacteriuria. 2. Positive urine culture extended-spectrum beta-lactamase. 3. Acute exacerbation chronic obstructive pulmonary disease. 4. Leukocytosis, improved. PLAN: Would observe off antibiotic therapy. Contact precautions for ESBL. Case discussed with patient's son and present at the time of the examination. Thank you for the kind referral. JASON SEQUEIRA M.D. [id number]
--- NOTE | 2018-10-24 13:44 | PN ---
Progress Note (short form) - Note Progress Note: Resting in NAD. No acute events overnight. No SOB or CP. Abdominal symptoms improving. Intake & Output 10/21/18 10/22/18 10/23/18 10/24/18 23:59 23:59 23:59 23:59 Intake Total 390 350 600 Balance 390 350 600 Weight 145 lb 3.2 oz 148 lb 4.8 oz 154 lb 3 oz Last Vital Signs Temp Pulse Resp BP Pulse Ox 98 F 78 19 140/60 95 10/24/18 10:00 10/24/18 10:00 10/24/18 10:00 10/24/18 10:00 10/24/18 09:00 Active Medications Albuterol/Ipratropium (Duoneb -) 1 amp NEB RQID [facility] Last Admin: 10/24/18 12:33 Dose: 1 amp Heparin Sodium (Porcine) (Heparin -) 5,000 unit SQ BID [facility] Last Admin: 10/24/18 09:57 Dose: 5,000 unit Insulin Aspart (Novolog Vial Sliding Scale -) 1 vial SQ [facility]; Protocol Last Admin: 10/24/18 12:27 Dose: 6 units Losartan Potassium (Cozaar -) 50 mg PO DAILY [facility] Last Admin: 10/24/18 09:56 Dose: 50 mg Prednisone (Deltasone -) 30 mg PO BID [facility] Last Admin: 10/24/18 09:56 Dose: 30 mg Constitutional: Yes: No Distress, Calm Eyes: Yes: Conjunctiva Clear, EOM Intact HENT: Yes: Atraumatic, Normocephalic Neck: Yes: Supple, Trachea Midline Cardiovascular: Yes: Regular Rate and Rhythm Respiratory: Yes: Diminished. No: Accessory Muscle Use, Rales, Rhonchi, SOB, SOB on Exertion, Stridor, Tachypnea, Wheezes ...Inspection: Yes: WNL ...Clubbing: No Gastrointestinal: Yes: Normal Bowel Sounds, Soft, Abdomen, Obese Renal/: Yes: WNL Musculoskeletal: Yes: WNL Extremities: Yes: WNL Edema: No Peripheral Pulses WNL: Yes Integumentary: Yes: WNL Neurological: Yes: WNL, Alert, Oriented ...Motor Strength: WNL Psychiatric: Yes: WNL, Alert, Oriented Labs: Laboratory Results - last 24 hr 10/23/18 10/23/18 10/24/18 16:39 21:46 08:04 POC Glucometer 328 273 233 10/24/18 12:24 POC Glucometer 313 Problem List - Problems (1) COPD (chronic obstructive pulmonary disease) Code(s): J44.9 - CHRONIC OBSTRUCTIVE PULMONARY DISEASE, UNSPECIFIED (2) Diabetes Code(s): E11.9 - TYPE 2 DIABETES MELLITUS WITHOUT COMPLICATIONS Qualifiers: Diabetes mellitus type: type 2 Diabetes mellitus complication detail: with dermatitis (3) HLD (hyperlipidemia) Code(s): E78.5 - HYPERLIPIDEMIA, UNSPECIFIED (4) HTN (hypertension) Code(s): I10 - ESSENTIAL (PRIMARY) HYPERTENSION (5) Shortness of breath Code(s): R06.02 - SHORTNESS OF BREATH Assessment/Plan Prednisone BD TX PRN O2 as needed Monitor off ABX No smoking PFTs after DC DC planning Dr Shah Problem List - Problems (1) COPD (chronic obstructive pulmonary disease) Code(s): J44.9 - CHRONIC OBSTRUCTIVE PULMONARY DISEASE, UNSPECIFIED (2) Diabetes Code(s): E11.9 - TYPE 2 DIABETES MELLITUS WITHOUT COMPLICATIONS Qualifiers: Diabetes mellitus type: type 2 Diabetes mellitus complication detail: with dermatitis (3) HLD (hyperlipidemia) Code(s): E78.5 - HYPERLIPIDEMIA, UNSPECIFIED (4) HTN (hypertension) Code(s): I10 - ESSENTIAL (PRIMARY) HYPERTENSION (5) Shortness of breath Code(s): R06.02 - SHORTNESS OF BREATH
[2018-10-25] MEDS: INSULIN SLIDING SCALE (NOVOLOG) 1 VIAL SQ SCH ×2 (07:00→11:00)
[2018-10-25] MEDS: ALBUTEROL SO4 2.5/IPRATROPIUM 0.5 INH SOL 3 ML VIAL.NEB. NEB SCH ×2 (07:52→12:00)
[2018-10-25 08:37] VITALS: TEMP 98.1
--- NOTE | 2018-10-25 09:23 | DS ---
Physical Examination Vital Signs: Vital Signs Temperature 98.1 F 10/25/18 08:00 Pulse Rate 77 10/25/18 08:00 Respiratory Rate 18 10/25/18 08:00 Blood Pressure 145/66 10/25/18 08:00 O2 Sat by Pulse Oximetry (%) 97 10/25/18 08:00 Constitutional: Yes: No Distress Eyes: Yes: WNL HENT: Yes: WNL Neck: Yes: WNL Cardiovascular: Yes: WNL Respiratory: Yes: WNL Gastrointestinal: Yes: WNL Musculoskeletal: Yes: WNL Extremities: Yes: WNL Edema: No Integumentary: Yes: WNL Wound/Incision: Yes: Clean/Dry Neurological: Yes: WNL ...Motor Strength: WNL Psychiatric: Yes: WNL Labs: CBC, BMP 10/21/18 05:45 10/21/18 05:45 Discharge Summary Reason For Visit: SOB Current Active Problems COPD (chronic obstructive pulmonary disease) (Acute) Diabetes (Acute) HLD (hyperlipidemia) (Acute) HTN (hypertension) (Acute) Shortness of breath (Acute) UTI (urinary tract infection) (Acute) Procedures: Principal: echo/ct scan Hospital Course: admitted dyspnea worked up echo ct asthma/copd treated with steroids iv and nebs pulm support Condition: Fair - Instructions Diet, Activity, Other Instructions: SEE DR GOMEZ NEXT WEEK AT [address] [facility] TUESDAY 1PM FOR FOLLOW UP BRING YOUR INSURANCE INFORMATION LOW SALT DIET Disposition: HOME - Home Medications Comprehensive Discharge Medication List: Ambulatory Orders Albuterol 2.5/Ipratropium 0.5 [Duoneb -] 1 amp NEB RQID #120 amp 10/25/18 Losartan Potassium 50 mg PO DAILY #30 tablet 10/25/18 Losartan Potassium [Cozaar -] 50 mg PO DAILY #30 tablet 10/25/18 Prednisone See Taper PO DAILY #40 tablet 10/25/18 Ranitidine HCl [Zantac] 300 mg PO DAILY #15 tablet 10/25/18 predniSONE [Deltasone -] See Taper PO BID #30 tablet 10/25/18
[2018-10-25] MEDS: LOSARTAN POTASSIUM 50 MG TABLET (FP) PO SCH (09:43)
[2018-10-25] MEDS: HEPARIN NA (PORCINE) 5,000 UNITS/ML 1ML VIAL SQ SCH (09:43)
[2018-10-25] MEDS: predniSONE 10 MG TABLET (UD) PO SCH (09:43)
[2018-10-25 10:12] VITALS: BP 160/54; PULSE 64
--- NOTE | 2018-10-25 11:59 | PN ---
Progress Note (short form) - Note Progress Note: PULMONARY Denies shortness of breath, cough or wheezing. Vital Signs Period Temp Pulse Resp BP Sys/Wing Pulse Ox Last 24 Hr 98.1 F-98.6 F 63-77 16-18 126-160/51-66 95-97 Gen: NAD at rest Heart: RRR Lung: decreased breath sounds at the bases Abd: soft, nontender Ext: no edema CBC, BMP 10/21/18 05:45 10/21/18 05:45 Active Medications Albuterol/Ipratropium (Duoneb -) 1 amp NEB RQID [facility] Last Admin: 10/25/18 07:52 Dose: Not Given Heparin Sodium (Porcine) (Heparin -) 5,000 unit SQ BID [facility] Last Admin: 10/25/18 09:43 Dose: 5,000 unit Insulin Aspart (Novolog Vial Sliding Scale -) 1 vial SQ ACHS [facility]; Protocol Last Admin: 10/25/18 07:00 Dose: Not Given Losartan Potassium (Cozaar -) 50 mg PO DAILY [facility] Last Admin: 10/25/18 09:43 Dose: 50 mg Prednisone (Deltasone -) 30 mg PO BID [facility] Last Admin: 10/25/18 09:43 Dose: 30 mg A/P Acute COPD Exacerbation HTN DM Hyperlipidemia Abdominal Pain resolved - prednisone taper - inhaled bronchodilators - outpt PFTs - DVT prophylaxis - d/c planning in progress
== END 2018-10-25 12:30 | disposition home or self-care (01) | DRG 191 ==
LOC: JER 12:45 → JERBED 16:25 → J2W 20:47
PROVIDERS: ADMIT Student in an Organized Health Care Education/Training Program; ATTEND Student in an Organized Health Care Education/Training Program
DX: J44.1 Chronic obstructive pulmonary disease with (acute) exacerbation (principal); N39.0 Urinary tract infection, site not specified; J44.9 Chronic obstructive pulmonary disease, unspecified; I10 Essential (primary) hypertension; E11.9 Type 2 diabetes mellitus without complications; E78.5 Hyperlipidemia, unspecified; M15.9 Polyosteoarthritis, unspecified; R06.02 Shortness of breath; J45.909 Unspecified asthma, uncomplicated; D72.829 Elevated white blood cell count, unspecified
CPT/HCPCS: 36415; 71046-TC-FY; 71250-TC; 80053; 80061; 81003; 82550; 82962; 83036; 83721; 83735; 83880; 84100; 84443; 84484; 85025; 85027; 85610; 85730; 87086; 87186; 93005; 93010; 93306-TC; 94640; 97116-GP; 97161-GP; 99284-25; J1644